=== PATIENT | male | born 1940 | race Caucasian/White ===

== ENCOUNTER 2017-05-23 15:29 | Emergency (ER) | payer MEDICARE ==
[~2017-05-23 15:29] MED LIST: ATOR40TA PO; LOSA-22 PO
== END 2017-05-23 18:42 | disposition left against medical advice (07) ==
LOC: ER 15:31
DX: Z53.21 Procedure and treatment not carried out due to patient leaving prior to being seen by health care provider (principal)

== ENCOUNTER 2017-11-22 16:02 | Emergency (ER) | payer MEDICARE ==
[~2017-11-22] VITALS: Ht 177.8 cm; Wt 79.4 kg
--- NOTE | 2017-11-22 16:16 | NUR ---
BBRA FROM HOME FOR LEFT ANKLE PAIN S/P FELL OFF STAIRS YESTERDAY. NAD VSS WILL CONT TO MONITOR
[2017-11-22] MEDS ORDERED: HYDROCODONE/APAP 5/325MG 1 EACH TABLET PO ONE (17:00)
[2017-11-22] MEDS ORDERED: HYDROCODONE/APAP 5/325MG 1 EACH TABLET ONE (17:25)
--- NOTE | 2017-11-22 17:49 | NUR ---
CALLED [facility] AND THE NURSE ORTHO WAS PAGED
[2017-11-22] MEDS ORDERED: MORPHINE SULFATE INJ 2 MG/ML DISP.SYRIN IM ONE (18:00)
[2017-11-22] MEDS ORDERED: MORPHINE SULFATE INJ 4 MG/ML DISP.SYRIN ONE (18:04)
--- NOTE | 2017-11-22 18:23 | NUR ---
CALLED [facility] FOR TRANSPORT REQUESTED STAIR CHAIR. ETA 2000 HOURS.
--- NOTE | 2017-11-22 18:47 | NUR ---
Thompson thomason in [facility] - 11/22/17 at 1848 by MARILYN CALLED [facility] FOR PANEL CALL AND DR SHETH WAS PAGED.
--- NOTE | 2017-11-22 20:11 | NUR ---
REPORT GIVEN TO [facility] FOR TRANSPORT TO PRIVATE RESIDENCE. REVIEWED DC INSTRUCTIONS WITH PT UNCLUDING F/U WITH [facility] AND [facility] STATUS. PT REFUSES CRUTCHES, REPORTS HE HAS A WHEELCHAIR AT HOME AND WILL ARRANGE PRIVATE TRANSPORT TO [facility] TOMORROW
--- NOTE | 2017-11-22 20:13 | NUR ---
Patient discharged to home in stable condition. Written and verbal after care instructions given. Patient verbalizes understanding of instruction.
[2017-11-22 20:26] VITALS: BP 145/56
== END 2017-11-22 20:27 | disposition home or self-care (01) ==
LOC: ER 16:05
DX: S82.62XA Displaced fracture of lateral malleolus of left fibula, initial encounter for closed fracture (principal); S82.292A Other fracture of shaft of left tibia, initial encounter for closed fracture; I10 Essential (primary) hypertension; Z95.1 Presence of aortocoronary bypass graft; E78.00 Pure hypercholesterolemia, unspecified; W10.9XXA Fall (on) (from) unspecified stairs and steps, initial encounter; Y93.89 Activity, other specified; Y92.89 Other specified places as the place of occurrence of the external cause; Y99.8 Other external cause status
CPT/HCPCS: 73610; 96372; 99284; A4606; J2270; Z7610

== ENCOUNTER 2020-01-22 10:35 | Outpatient (CLI) | payer MEDICARE ==
[2020-01-22 12:08] LABS: BASOPHILS # (AUTO) 0.1 /CMM (0.0-0.2); BASOPHILS % (AUTO) 0.8 % (0.0-2.0); EOSINOPHILS % (AUTO) 5.6 % (0.0-6.0); HEMATOCRIT 40 % (39-51); HEMOGLOBIN 13.8 g/dL (13.5-17.5); LYMPHOCYTES # (AUTO) 1.3 /CMM (0.8-4.8); LYMPHOCYTES % (AUTO) 20.8 % (20.0-44.0); MEAN CORPUSCULAR HGB CONC 34 g/dl (31.0-36.0); MEAN CORPUSCULAR VOLUME 90 fL (80-96); MONOCYTES # (AUTO) 0.4 /CMM (0.1-1.30); MONOCYTES % (AUTO) 6.9 % (2.0-12.0); NEUTROPHILS # (AUTO) 4.2 /CMM (1.8-8.9); NEUTROPHILS % (AUTO) 65.9 % (43.0-81.0); PLATELET COUNT (AUTO) 208 /CMM (150-450); RED BLOOD CELL COUNT(AUTO) 4.46 MIL/uL (4.5-6.0); WHITE BLOOD COUNT (AUTO) 6.4 K/uL (4.3-11.0)
[2020-01-22 12:58] LABS: ALANINE AMINOTRANSFERASE 29 U/L (12-78); ALBUMIN 3.7 g/dL (3.4-5.0); ALKALINE PHOSPHATASE 41 U/L (46-116); ASPARTATE AMINOTRANSFERASE 23 U/L (15-37); CALCIUM, SERUM 8.8 mg/dL (8.5-10.1); CARBON DIOXIDE 32 mmol/L (21-32); CHLORIDE 97 mmol/L (98-107); CREATININE 0.6 mg/dL (0.6-1.3); GLUCOSE 104 mg/dL (74-106); MAGNESIUM 2.1 mg/dL (1.8-2.4); PHOSPHORUS 3.6 mg/dL (2.5-4.9); POTASSIUM 3.9 mmol/L (3.5-5.1); SODIUM SERUM 136 mmol/L (136-145); TOTAL PROTEIN, SERUM 7.1 g/dL (6.4-8.2); UREA NITROGEN, BLOOD 11 mg/dL (7-18)
[2020-01-22 13:08] LABS: FREE T4 (FREE THYROXINE) 1.26 ng/dL (0.76-1.46); THYROID STIMULATING HORMONE 1.909 uIU/mL (0.358-3.74)
[2020-01-22 13:15] LABS: C-REACTIVE PROTEIN < 0.2 mg/dL (0.0-0.9)
== END 2020-01-22 23:59 | disposition home or self-care (01) ==
LOC: MSC 10:35
PROVIDERS: ATTEND Internal Medicine
DX: R22.42 Localized swelling, mass and lump, left lower limb (principal); I25.10 Atherosclerotic heart disease of native coronary artery without angina pectoris; I11.0 Hypertensive heart disease with heart failure; I50.30 Unspecified diastolic (congestive) heart failure; E78.5 Hyperlipidemia, unspecified; M47.20 Other spondylosis with radiculopathy, site unspecified; H61.20 Impacted cerumen, unspecified ear; L30.9 Dermatitis, unspecified; Z79.899 Other long term (current) drug therapy
CPT/HCPCS: 36415; 80053; 82306; 83036; 83735; 84100; 84439; 84443; 85025; 85652; 86140; G0463

== ENCOUNTER 2020-06-05 11:46 | Outpatient (CLI) | payer MEDICARE ==
[2020-06-05 13:14] LABS: BASOPHILS % (AUTO) 0.5 % (0.0-2.0); EOSINOPHILS % (AUTO) 4.3 % (0.0-6.0); HEMATOCRIT 43 % (39-51); HEMOGLOBIN 14.2 g/dL (13.5-17.5); LYMPHOCYTES # (AUTO) 1.6 /CMM (0.8-4.8); LYMPHOCYTES % (AUTO) 22.3 % (20.0-44.0); MEAN CORPUSCULAR HGB CONC 33 g/dl (31.0-36.0); MEAN CORPUSCULAR VOLUME 89 fL (80-96); MONOCYTES # (AUTO) 0.5 /CMM (0.1-1.30); MONOCYTES % (AUTO) 6.5 % (2.0-12.0); NEUTROPHILS # (AUTO) 4.8 /CMM (1.8-8.9); NEUTROPHILS % (AUTO) 66.4 % (43.0-81.0); PLATELET COUNT (AUTO) 211 /CMM (150-450); RED BLOOD CELL COUNT(AUTO) 4.81 MIL/uL (4.5-6.0); WHITE BLOOD COUNT (AUTO) 7.2 K/uL (4.3-11.0)
[2020-06-05 13:40] LABS: C-REACTIVE PROTEIN 0.4 mg/dL (0.0-0.9); THYROID STIMULATING HORMONE 2.123 uIU/mL (0.358-3.74)
[2020-06-05 13:52] LABS: ALBUMIN 3.8 g/dL (3.4-5.0); BILIRUBIN,TOTAL 0.9 mg/dL (0.2-1.0); CREATININE 0.6 mg/dL (0.6-1.3); MAGNESIUM 2.1 mg/dL (1.8-2.4); PHOSPHORUS 3.3 mg/dL (2.5-4.9); POTASSIUM 4.1 mmol/L (3.5-5.1); TOTAL PROTEIN, SERUM 7.4 g/dL (6.4-8.2)
== END 2020-06-05 23:59 | disposition home or self-care (01) ==
LOC: MSC 11:46
PROVIDERS: ATTEND Internal Medicine
DX: Z09 Encounter for follow-up examination after completed treatment for conditions other than malignant neoplasm (principal); I11.0 Hypertensive heart disease with heart failure; I50.30 Unspecified diastolic (congestive) heart failure; I25.10 Atherosclerotic heart disease of native coronary artery without angina pectoris; Z95.1 Presence of aortocoronary bypass graft; R22.42 Localized swelling, mass and lump, left lower limb; L30.9 Dermatitis, unspecified; E78.5 Hyperlipidemia, unspecified; M47.20 Other spondylosis with radiculopathy, site unspecified; H61.20 Impacted cerumen, unspecified ear; Z79.899 Other long term (current) drug therapy
CPT/HCPCS: 36415; 80053; 80061; 82607; 82746; 83036; 83735; 84100; 84439; 84443; 85025; 85652; 86140; G0463

== ENCOUNTER 2020-06-10 10:00 | Outpatient (CLI) | payer MEDICARE | END 2020-06-10 23:59 | disposition home or self-care (01) | LOC: MSC 10:00 | PROVIDERS: ATTEND Internal Medicine | DX: I25.10 Atherosclerotic heart disease of native coronary artery without angina pectoris (principal); I11.0 Hypertensive heart disease with heart failure; I50.30 Unspecified diastolic (congestive) heart failure; M47.20 Other spondylosis with radiculopathy, site unspecified; S82.892D Other fracture of left lower leg, subsequent encounter for closed fracture with routine healing; X58.XXXD Exposure to other specified factors, subsequent encounter; H61.20 Impacted cerumen, unspecified ear; L30.9 Dermatitis, unspecified ==

== ENCOUNTER 2021-01-06 11:33 | Outpatient (CLI) | payer MEDICARE ==
[2021-01-06 13:04] LABS: BASOPHILS % (AUTO) 0.5 % (0.0-2.0); HEMATOCRIT 44 % (39-51); HEMOGLOBIN 14.7 g/dL (13.5-17.5); LYMPHOCYTES # (AUTO) 1.7 K/uL (0.8-4.8); LYMPHOCYTES % (AUTO) 24.4 % (20.0-44.0); MEAN CORPUSCULAR HGB CONC 33 g/dl (31.0-36.0); MEAN CORPUSCULAR VOLUME 89 fL (80-96); MONOCYTES # (AUTO) 0.5 K/uL (0.1-1.30); MONOCYTES % (AUTO) 6.8 % (2.0-12.0); NEUTROPHILS # (AUTO) 4.4 K/uL (1.8-8.9); NEUTROPHILS % (AUTO) 64.3 % (43.0-81.0); PLATELET COUNT (AUTO) 198 K/uL (150-450); RED BLOOD CELL COUNT(AUTO) 4.96 MIL/uL (4.5-6.0); WHITE BLOOD COUNT (AUTO) 6.9 K/uL (4.3-11.0)
[2021-01-06 15:37] LABS: CHOLESTEROL 114 mg/dL (<200); HDL CHOLESTEROL 48 mg/dL (40-60); LDL 56 mg/dL (0-99); PROSTATE SPECIFIC ANTIGEN SCR 4.62 ng/mL (0.00-4.00); THYROID STIMULATING HORMONE 2.099 uIU/mL (0.358-3.74); TRIGLYCERIDES 47 mg/dL (30-150)
[2021-01-06 15:38] LABS: C-REACTIVE PROTEIN < 0.2 mg/dL (0.0-0.9)
[2021-01-06 15:47] LABS: ALANINE AMINOTRANSFERASE 30 U/L (12-78); ALKALINE PHOSPHATASE 79 U/L (46-116); ASPARTATE AMINOTRANSFERASE 22 U/L (15-37); BILIRUBIN,TOTAL 1.2 mg/dL (0.2-1.0); CALCIUM, SERUM 8.6 mg/dL (8.5-10.1); CARBON DIOXIDE 30 mmol/L (21-32); CHLORIDE 98 mmol/L (98-107); CREATININE 0.6 mg/dL (0.6-1.3); GLUCOSE 88 mg/dL (74-106); MAGNESIUM 2.2 mg/dL (1.8-2.4); PHOSPHORUS 3.7 mg/dL (2.5-4.9); POTASSIUM 3.8 mmol/L (3.5-5.1); SODIUM SERUM 137 mmol/L (136-145); TOTAL PROTEIN, SERUM 7.7 g/dL (6.4-8.2); UREA NITROGEN, BLOOD 15 mg/dL (7-18)
== END 2021-01-06 23:59 | disposition home or self-care (01) ==
LOC: MSC 11:33
PROVIDERS: ATTEND Internal Medicine
DX: Z00.00 Encounter for general adult medical examination without abnormal findings (principal); R60.0 Localized edema; I11.0 Hypertensive heart disease with heart failure; I50.30 Unspecified diastolic (congestive) heart failure; Z79.82 Long term (current) use of aspirin; I25.10 Atherosclerotic heart disease of native coronary artery without angina pectoris; Z95.1 Presence of aortocoronary bypass graft; E78.49 Other hyperlipidemia; M47.20 Other spondylosis with radiculopathy, site unspecified; H61.20 Impacted cerumen, unspecified ear; L30.9 Dermatitis, unspecified; Z79.899 Other long term (current) drug therapy
CPT/HCPCS: 36415; 80053; 80061; 82306; 82607; 82746; 83036; 83735; 84100; 84153; 84439; 84443; 85025; 85652; 86140; G0463

== ENCOUNTER 2021-01-14 14:00 | Outpatient (CLI) | payer MEDICARE | END 2021-01-14 23:59 | disposition home or self-care (01) | LOC: MSC 14:00 | PROVIDERS: ATTEND Internal Medicine | DX: Z51.89 Encounter for other specified aftercare (principal); M79.89 Other specified soft tissue disorders; I11.0 Hypertensive heart disease with heart failure; I50.30 Unspecified diastolic (congestive) heart failure; I25.10 Atherosclerotic heart disease of native coronary artery without angina pectoris; Z95.1 Presence of aortocoronary bypass graft; R97.20 Elevated prostate specific antigen [PSA]; E78.49 Other hyperlipidemia; M47.20 Other spondylosis with radiculopathy, site unspecified; H61.20 Impacted cerumen, unspecified ear; L30.9 Dermatitis, unspecified; Z79.82 Long term (current) use of aspirin; Z79.899 Other long term (current) drug therapy ==